=== PATIENT | male | born 1990 | race American Indian/Alaskan Native ===

== ENCOUNTER 2020-03-30 03:29 | Emergency (ER) | payer SELFPAY ==
[2020-03-30] MEDS ORDERED: diphenhydrAMINE 50 MG/ML VIAL IV ONE (03:36)
[2020-03-30] MEDS ORDERED: SODIUM CHLORIDE 0.9% 1000 ML 1,000 ML IV ONE (03:36)
[2020-03-30] MEDS ORDERED: BUTALB/ACETAMINOPHEN/CAFFEINE TAB PO ONE (03:36)
[2020-03-30] MEDS ORDERED: METOCLOPRAMIDE 10 MG/2 ML INJ IV ONE (03:36)
[2020-03-30 03:37] VITALS: BP 128/71
--- NOTE | 2020-03-30 03:51 | Emergency Department Report ---
ED Headache HPI - General Chief Complaint: Headache Stated Complaint: HEADACHE,NUASEA Source: patient - History of Present Illness Initial Comments: Patient is a 30-year-old -Romanian male with a history of chronic migraine headaches who presents to the ED with complaint of acute onset persistent severe diffuse severe headache with nausea for the last 2 days. Patient states that he try to take the [id number]-[id number] Aleve 200 mg p.o. with no relief. Patient states that although he has had multiple migraine headache episodes, this latest episode or headache is worse than the rest of the previous migraine headache episodes. Patient denies dizziness, syncope, change in vision, neck pain, chest pain, shortness of breath, cough, sore throat, nasal and sinus congestion, fever, chills, vomiting and diarrhea or abdominal pain. Timing/Duration: constant, waxing and waning, other (2 days) Quality: severe, constant, sharp, stabbing, throbbing Head Injury Location: global Recent Head Trauma: no recent headache/trauma, occasional headaches Modifying Factors: improves with: medication Associated Symptoms: denies symptoms, nausea/vomiting. denies: confusion, fatigue, facial pain, fever/chills, flushing, loss of consciousness, nasal congestion, nasal drainage, numbness in legs/feet, seizures, sinus infection, stiff neck, vision changes, weakness Allergies/Adverse Reactions: Allergies No Known Allergies Allergy (Unverified 03/30/20 03:37) Home Medications: Ambulatory Orders Butalb/Acetamin/Caff 50-325-40 [Fioricet 50-325-40] 1 - 2 tab PO Q6HR PRN #15 tab 03/30/20 Ibuprofen [Motrin] 600 mg PO Q8H PRN #30 tablet 03/30/20 Ondansetron [Zofran Odt] 4 mg PO Q6HR PRN #15 tab.rapdis 03/30/20 ED Review of Systems ROS: Stated complaint: HEADACHE,NUASEA Other details as noted in HPI Constitutional: denies: chills, fever Eyes: denies: eye pain, eye discharge, vision change ENT: denies: ear pain, throat pain Respiratory: denies: cough, shortness of breath, wheezing Cardiovascular: denies: chest pain, palpitations Endocrine: no symptoms reported Gastrointestinal: nausea. denies: abdominal pain, diarrhea Genitourinary: denies: urgency, dysuria Musculoskeletal: denies: back pain, joint swelling, arthralgia Skin: denies: rash, lesions Neurological: headache. denies: weakness, paresthesias Psychiatric: denies: anxiety, depression Hematological/Lymphatic: denies: easy bleeding, easy bruising ED Past Medical Hx - Past Medical History Previous Medical History?: Yes Hx Headaches / Migraines: Yes - Surgical History Past Surgical History?: No - Social History Smoking Status: Current Every Day Smoker Substance Use Type: Alcohol - Medications Home Medications: Home Medications Medication Instructions Recorded Confirmed Last Taken Type Butalb/Acetamin/Caff 50-325-40 1 - 2 tab PO Q6HR PRN #15 tab 03/30/20 Unknown Rx [Fioricet 50-325-40] Ibuprofen [Motrin] 600 mg PO Q8H PRN #30 tablet 03/30/20 Unknown Rx Ondansetron [Zofran Odt] 4 mg PO Q6HR PRN #15 tab.rapdis 03/30/20 Unknown Rx ED Physical Exam - General Limitations: No Limitations General appearance: alert, in no apparent distress - Head Head exam: Present: atraumatic, normocephalic, normal inspection - Eye Eye exam: Present: normal appearance, PERRL, EOMI Pupils: Present: normal accommodation - ENT ENT exam: Present: normal exam, normal orophraynx, mucous membranes moist, TM's normal bilaterally, normal external ear exam - Neck Neck exam: Present: normal inspection, full ROM - Respiratory Respiratory exam: Present: normal lung sounds bilaterally. Absent: respiratory distress, wheezes, rales, stridor, chest wall tenderness, accessory muscle use, decreased breath sounds, prolonged expiratory - Cardiovascular Cardiovascular Exam: Present: normal rhythm, bradycardia, normal heart sounds. Absent: systolic murmur, diastolic murmur, rubs, gallop - GI/Abdominal GI/Abdominal exam: Present: soft, normal bowel sounds. Absent: distended, guarding, rebound, hyperactive bowel sounds, hypoactive bowel sounds, organomegaly - Extremities Exam Extremities exam: Present: normal inspection, full ROM, normal capillary refill - Back Exam Back exam: Present: normal inspection, full ROM. Absent: tenderness, CVA tenderness (R), CVA tenderness (L), muscle spasm, paraspinal tenderness, vertebral tenderness, rash noted - Neurological Exam Neurological exam: Present: alert, oriented X3, CN II-XII intact, normal gait, reflexes normal - Psychiatric Psychiatric exam: Present: normal affect, normal mood - Skin Skin exam: Present: warm, dry, intact, normal color. Absent: rash ED Course Vital Signs 03/30/20 03:33 Temperature 98.0 F Pulse Rate 52 L Respiratory 18 Rate Blood Pressure 128/71 O2 Sat by Pulse 100 Oximetry ED Medical Decision Making - Radiology Data Radiology results: report reviewed, image reviewed Findings [facility] [address] [place] [address] Cat Scan Report Signed Patient: LENNY AGUILAR MR#: [id number] 3 : 1990 Acct:[id number] Age/Sex: 30 / M ADM Date: 03/30/20 Loc: ED Attending Dr: Ordering Physician: VENUS MCMANUS Date of Service: 03/30/20 Procedure(s): CT head/brain wo con Accession Number(s): [id number] cc: VENUS MCMANUS CT HEAD/BRAIN WO CON INDICATION / CLINICAL INFORMATION: Severe headache. TECHNIQUE: All CT scans at this location are performed using CT dose reduction for ALARA by means of automated exposure control. COMPARISON: None available. FINDINGS: The ventricular system is normal in size and configuration. No focal lesion or mass effect is seen. There is no evidence of intracranial hemorrhage or major vessel occlusion. The calvarium is intact. The visualized paranasal sinuses and mastoid air cells are clear. IMPRESSION: No acute abnormality. Signer Name: Suridner Phipps MD Signed: 03/30/2020 4:01 AM Workstation Name: [id number] Transcribed By: RT Dictated By: Surinder Phipps MD Electronically Authenticated By: Surinder Phipps MD Signed Date/Time: 03/30/20400 DD/ 9 TD/TT: - Medical Decision Making This is a 30-year-old -Romanian male with a history of chronic migraine headaches who presents to the ED with complaint of acute onset persistent severe diffuse severe headache with nausea for the last 2 days. Patient states that he try to take the tpvv-[id number] Aleve 200 mg p.o. with no relief. Patient states that although he has had multiple migraine headache episodes, this latest episode or headache is worse than the rest of the previous migraine headache episodes. In the ED, patient is alert and oriented x3 and is not in any distress but appears to be in pain. Patient was treated for pain in the ED and also given normal saline 1 L IV bolus x1. Head CT scan without contrast showed no acute intracranial abnormalities or hemorrhage. On reevaluation, patient headache resolved medications. Nausea also resolved medications. Patient felt better and was discharged home on medications. Patient is hemodynamically stable upon discharge from the ED. Patient was advised to follow-up with his primary care physician in 3 to 5 days for reevaluation or return to the ED immediately if symptoms get worse. - Differential Diagnosis Migraine headaches, sinusitis, cluster headache, tension headache, SAH Critical care attestation.: If time is entered above; I have spent that time in minutes in the direct care of this critically ill patient, excluding procedure time. ED Disposition Clinical Impression: Nausea and vomiting in adult Migraine headache without aura Qualifiers: Status migrainosus presence: without status migrainosus Intractability: intractable Qualified Code(s): G43.019 - Migraine without aura, intractable, without status migrainosus Disposition: DC-01 TO HOME OR SELFCARE Is pt being admited?: No Does the pt Need Aspirin: No Condition: Stable Instructions: Migraine Headache, [id number], Nausea and Vomiting, Adult, [id number] Additional Instructions: The head CT scan without contrast showed no acute intracranial abnormalities or hemorrhage. Therefore take medication with food, drink plenty of fluids and follow-up with your primary care physician in 3 to 5 days for reevaluation. Return to the ED immediately if symptoms get worse. Prescriptions: Butalb/Acetamin/Caff 50-325-40 [Fioricet 50-325-40] 1 - 2 tab PO Q6HR PRN #15 tab PRN Reason: Headache Ibuprofen [Motrin] 600 mg PO Q8H PRN #30 tablet PRN Reason: Pain Ondansetron [Zofran Odt] 4 mg PO Q6HR PRN #15 tab.rapdis PRN Reason: Nausea Referrals: [facility] [Provider Group] - 3-5 Days Time of Disposition: 05:04 Print Language: CITIZEN OF [place]
--- NOTE | 2020-03-30 04:06 | Cat Scan Report ---
CT HEAD/BRAIN WO CON INDICATION / CLINICAL INFORMATION: Severe headache. TECHNIQUE: All CT scans at this location are performed using CT dose reduction for ALARA by means of automated e xposure control. COMPARISON: None available. FINDINGS: The ventricular system is normal in size and configuration. No focal lesion or mass effect is seen. T here is no evidence of intracranial hemorrhage or major vessel occlusion. The calvarium is intact. Th e visualized paranasal sinuses and mastoid air cells are clear. IMPRESSION: No acute abnormality. Signer Name: Surinder Phipps MD Signed: 03/30/2020 4:01 AM Workstation Name: [id number]
== END 2020-03-30 06:18 | disposition home or self-care (01) ==
LOC: ED 03:29
DX: G43.909 Migraine, unspecified, not intractable, without status migrainosus (principal); R11.2 Nausea with vomiting, unspecified; F17.200 Nicotine dependence, unspecified, uncomplicated; Z79.899 Other long term (current) drug therapy
CPT/HCPCS: 70450; 96361; 96374; 96375; 99283; J1200; J2765; J7030